=== PATIENT | male | born 1970 | race Caucasian/White ===

== ENCOUNTER 2016-12-15 17:27 | Emergency (ER) | payer BC ==
[~2016-12-15] VITALS: Ht 177.8 cm; Wt 102.9 kg
[~2016-12-15 17:27] MED LIST: DILAUDID2 MG PO; LOTREL 5/101 CAPSULE PO; MOTRIN400 M1 PO; PERCOCET 5/31 TABLET PO; PROMETHAZINE HC25 M1 PO; PYRIDIUM200 M1 PO; REPLACE1 EACH PO; TYLENOL EXTRA500 MG PO; ZOCOR5 MG PO
[2016-12-15 18:50] LABS: ADD MIUA? NO; BILIRUBIN NEGATIVE; BLOOD NEGATIVE; COLOR YELLOW ((YELLOW)); GLUCOSE (STRIP) NEGATIVE; KETONES NEGATIVE; LEUKOCYTES NEGATIVE; NITRITE NEGATIVE; PROTEIN (STRIP) NEGATIVE; SPECIFIC GRAVITY 1.012 (1.000-1.030); UROBILINOGEN 0.2 MG/DL (0.2-1.0)
[2016-12-15 19:03] LABS: EOSINOPHIL (%) 0.5 % (0-5); EOSINOPHIL COUNT 0.1 K/uL (0-0.3); HEMATOCRIT 37.8 % (38.0-50.0); IMMATURE GRANULOCYTE (%) 0.4 % (0.0-0.7); IMMATURE GRANULOCYTE COUNT 0.1 K/uL; INSTRUMENT ABS NEUTROPHIL CT 13.2 K/uL; LYMPHOCYTE COUNT 1.7 K/uL (1.0-2.8); MCH 31.4 PG (29.0-34.0); MCHC 36.5 G/DL (30.0-36.0); MCV 85.9 FL (86-99); MEAN PLAT.VOLUME 9.9 uM^3 (9.0-12.4); MONOCYTE COUNT 1.3 K/uL (0-0.8); NEUTROPHIL (%) 80.6 % (45-76); NEUTROPHIL COUNT 13.2 K/uL (1.8-6.4); PLATELET COUNT 227 K/uL (156-360); RBC DIS.WIDTH-CV 12.5 % (11.8-14.6); RBC DIS.WIDTH-SD 38.6 % (39-53); WHITE BLOOD COUNT 16.4 K/uL (4.1-10.2)
[2016-12-15 19:12] LABS: CHLORIDE 102 mEq/L (99-109); POTASSIUM 2.8 mEq/L (3.7-5.4); SODIUM 140 mEq/L (136-147)
[2016-12-15 19:14] LABS: GLUCOSE 100 mg/dL (70-99)
[2016-12-15 19:15] LABS: ANION GAP 12 MEQ/L (2-14)
[2016-12-15 19:18] LABS: GFR ESTIMATE (CALCULATED) > 59 mL/min/
[2016-12-15 19:19] LABS: UREA NITROGEN (BUN) 11 mg/dL (9-23)
[2016-12-15] MEDS ORDERED: NORCO 5/3251 TABLET PO (19:41)
[2016-12-15] MEDS ORDERED: FLAGYL500 MG PO (19:41)
[2016-12-15] MEDS ORDERED: CIPRO500 MG PO (19:41)
[2016-12-15 20:04] VITALS: BP 138/85
== END 2016-12-15 20:05 | disposition home or self-care (01) ==
LOC: EME 17:27
PROVIDERS: Physician Assistant
DX: K57.92 Diverticulitis of intestine, part unspecified, without perforation or abscess without bleeding (principal); E87.6 Hypokalemia; I10 Essential (primary) hypertension
CPT/HCPCS: 74176; 80048; 81003; 85025; 99281; 99284; J1885

== ENCOUNTER 2017-04-13 10:23 | Emergency (ER) | payer BC ==
[~2017-04-13] VITALS: Ht 177.8 cm; Wt 101.7 kg
[~2017-04-13 10:23] MED LIST changes: +CIPRO500 MG PO; +FLAGYL500 MG PO; +NORCO 5/3251 TABLET PO
[2017-04-13 11:42] LABS: HEMATOCRIT 41.1 % (38.0-50.0); MCH 31.5 PG (29.0-34.0); MCHC 36.7 G/DL (30.0-36.0); MCV 85.8 FL (86-99); MEAN PLAT.VOLUME 10.2 uM^3 (9.0-12.4); PLATELET COUNT 217 K/uL (156-360); RBC DIS.WIDTH-CV 12.4 % (11.8-14.6); RBC DIS.WIDTH-SD 38.8 % (39-53); RED BLOOD COUNT 4.79 M/uL (4.00-5.50); WHITE BLOOD COUNT 13.9 K/uL (4.1-10.2)
[2017-04-13 11:46] LABS: ADD MIUA? NO; BILIRUBIN NEGATIVE; BLOOD NEGATIVE; COLOR YELLOW ((YELLOW)); GLUCOSE (STRIP) NEGATIVE; KETONES NEGATIVE; LEUKOCYTES NEGATIVE; NITRITE NEGATIVE; PROTEIN (STRIP) NEGATIVE; SPECIFIC GRAVITY 1.014 (1.000-1.030); UCUL ADDED? NO; UROBILINOGEN 0.2 MG/DL (0.2-1.0)
[2017-04-13 11:56] LABS: CHLORIDE 104 mEq/L (99-109); SODIUM 140 mEq/L (136-147)
[2017-04-13 11:59] LABS: GLUCOSE 112 mg/dL (70-99)
[2017-04-13 12:00] LABS: ANION GAP 9 MEQ/L (2-14)
[2017-04-13 12:01] LABS: TOTAL BILIRUBIN 0.9 mg/dL (0.0-1.0)
[2017-04-13 12:02] LABS: ALKALINE PHOSPHATASE 62 IU/L (3-129)
[2017-04-13 12:03] LABS: GFR ESTIMATE (CALCULATED) > 59 mL/min/
[2017-04-13 12:04] LABS: DIRECT BILIRUBIN 0.3 mg/dL (0.0-0.3); UREA NITROGEN (BUN) 16 mg/dL (9-23)
[2017-04-13 12:06] LABS: LIPASE 32 U/L (1.0-51.0)
[2017-04-13] MEDS ORDERED: BENTYL10 MG PO (13:46)
[2017-04-13] MEDS ORDERED: CIPRO500 MG PO (13:46)
[2017-04-13] MEDS ORDERED: FLAGYL500 MG PO (13:46)
[2017-04-13 14:27] VITALS: BP 134/67
== END 2017-04-13 14:54 | disposition home or self-care (01) ==
LOC: EME 10:23
DX: K57.92 Diverticulitis of intestine, part unspecified, without perforation or abscess without bleeding (principal); I10 Essential (primary) hypertension; Z87.442 Personal history of urinary calculi
CPT/HCPCS: 74177; 80048; 80076; 81003; 83690; 85027; 99281; 99284; J1885; J2405; J7030

== ENCOUNTER 2017-12-22 06:03 | Emergency (ER) | payer BC ==
[~2017-12-22] VITALS: Ht 177.8 cm; Wt 101.9 kg
[~2017-12-22 06:03] MED LIST changes: +BENTYL10 MG PO
[2017-12-22 06:43] LABS: BASOPHIL (%) 0.4 % (0-1); BASOPHIL COUNT 0.1 K/uL (0-0.1); EOSINOPHIL (%) 1.3 % (0-5); EOSINOPHIL COUNT 0.2 K/uL (0-0.3); HEMATOCRIT 42.5 % (38.0-50.0); HEMOGLOBIN 15.7 G/DL (12.5-16.6); IMMATURE GRANULOCYTE (%) 0.3 % (0.0-0.7); MCH 31.5 PG (29.0-34.0); MCHC 36.9 G/DL (30.0-36.0); MCV 85.2 FL (86-99); MONOCYTE (%) 7.6 % (3-12); NEUTROPHIL (%) 75.4 % (45-76); NEUTROPHIL COUNT 10.1 K/uL (1.8-6.4); PLATELET COUNT 252 K/uL (156-360); RBC DIS.WIDTH-CV 12.5 % (11.8-14.6); RBC DIS.WIDTH-SD 38.8 % (39-53); RED BLOOD COUNT 4.99 M/uL (4.00-5.50); WHITE BLOOD COUNT 13.5 K/uL (4.1-10.2)
[2017-12-22 07:21] LABS: ALBUMIN 4.4 G/DL (3.2-4.8); ALKALINE PHOSPHATASE 48 IU/L (3-129); ALT (GPT) 35 IU/L (3-49); AST (GOT) 21 IU/L (2-34); CHLORIDE 101 MEQ/L (99-109); CREATININE 0.9 MG/DL (0.6-1.3); GFR ESTIMATE (CALCULATED) > 59 mL/min/ (58.99-99999); GLUCOSE 129 mg/dL (70-99); POTASSIUM 3.1 MEQ/L (3.7-5.4); SODIUM 139 MEQ/L (136-147); TOTAL BILIRUBIN 0.6 MG/DL (0.0-1.0); TOTAL PROTEIN 7.2 G/DL (6.4-8.3); UREA NITROGEN (BUN) 17 mg/dL (9-23)
[2017-12-22 07:46] LABS: APPEARANCE CLOUDY ((CLEAR)); BILIRUBIN NEGATIVE; BLOOD NEGATIVE; COLOR YELLOW ((YELLOW)); GLUCOSE (STRIP) NEGATIVE; KETONES NEGATIVE; LEUKOCYTES NEGATIVE; NITRITE NEGATIVE; PROTEIN (STRIP) NEGATIVE; SPECIFIC GRAVITY 1.012 (1.000-1.030); UROBILINOGEN 0.2 MG/DL (0.2-1.0)
[2017-12-22 07:53] LABS: BACTERIA NONE SEEN /HPF; EPITHELIAL CELLS NONE SEEN /HPF; MUCUS TRACE /LPF; RED BLOOD CELLS 0-5 /HPF (0-5); UCUL ADDED? NO; WHITE BLOOD CELLS 0-5 /HPF (0-5)
[2017-12-22] MEDS ORDERED: PERCOCET 5/31 TABLET PO (08:08)
[2017-12-22] MEDS ORDERED: FLOMAX0.4 MG PO (08:08)
[2017-12-22] MEDS ORDERED: ZOFRAN ODT4 MG PO (08:08)
[2017-12-22] MEDS ORDERED: MOTRIN800 MG PO (08:08)
[2017-12-22 08:43] VITALS: BP 128/82
== END 2017-12-22 08:44 | disposition home or self-care (01) ==
LOC: EME 06:03
PROVIDERS: Emergency Medicine
DX: N20.0 Calculus of kidney (principal); I10 Essential (primary) hypertension; Z87.442 Personal history of urinary calculi
CPT/HCPCS: 74176; 80053; 81003; 85025; 99281; 99285; J1885; J2405; J3010; J7030